=== PATIENT | male | born 1955 | race Caucasian/White ===

== ENCOUNTER 2019-10-05 18:25 | Emergency (ER) | payer SELFPAY ==
[2019-10-05] MEDS ORDERED: BUPIVACAINE 0.5% PF 10 ML VIAL ONE (19:15)
[2019-10-05] MEDS ORDERED: TETANUS & DIPHTHERIA TOX,ADULT 0.5 ML VIAL ONE (19:16)
--- NOTE | 2019-10-05 19:47 | RAD REPORT ---
EXAM DESCRIPTION: RAD -Hand Left 3 View - 10/05/2019 7:28 pm CLINICAL HISTORY: Left hand pain status post injury FINDINGS: No fracture or dislocation is seen.
--- NOTE | 2019-10-05 21:00 | ER ---
Nurse's Notes [facility] Name: Markel Roblero Age: 63 yrs Sex: Male : 1955 Arrival Date: 10/05/2019 Time: 18:28 Bed 8 Private MD: Virgil Mcnamara E Diagnosis: Finger laceration Presentation: 10/04 18:30 Chief complaint: Patient states: smashed his left 4th digit in between a lever and a sv sleeper. His ring had gotten caught but he has already taken off his ring. Coronavirus screen: Proceed with normal triage. Patient denies a cough. Patient denies shortness of breath or difficulty breathing. Patient denies measured and/or subjective temperature greater than 100.4F prior to today's visit. Patient denies travel on a cruise ship or to a country the [facility] currently lists as an affected area. Patient denies contact with known and/or suspected case of COVID-19. Ebola Screen: No symptoms or risks identified at this time. Risk Assessment: Do you want to hurt yourself or someone else? Patient reports no desire to harm self or others. Onset of symptoms was October 05, 2019. 18:30 Method Of Arrival: Ambulatory sv 18:30 Acuity: YAO 3 sv 18:32 Initial Sepsis Screen: Does the patient meet any 2 criteria? No. Patient's initial sv sepsis screen is negative. Does the patient have a suspected source of infection? No. Patient's initial sepsis screen is negative. Historical: - Allergies: 18:31 No Known Allergies; sv - PMHx: 18:31 Hypertension; sv - Immunization history:: Last tetanus immunization: > 10 years ago. - Social history:: Smoking status: . Screenin:25 Abuse screen: Denies threats or abuse. Nutritional screening: No deficits noted. ea Tuberculosis screening: No symptoms or risk factors identified. Fall Risk None identified. Assessment: 19:25 General: Appears in no apparent distress. Behavior is calm, cooperative, appropriate ea for age. Pain: Complains of pain in palmar aspect of proximal phalanx of left ring finger. Neuro: Level of Consciousness is awake, alert, obeys commands, Oriented to person, place, time, situation. Respiratory: Airway is patent Respiratory effort is even, unlabored, Respiratory pattern is regular, symmetrical. Injury Description: Laceration sustained to palmar aspect of proximal phalanx of left ring finger. 19:42 Injury Description: Laceration sustained to palmar aspect of proximal phalanx of left ea ring finger is clean, 0.5 to 2.5 cm long, was sustained 1-2 hours ago. a small amount of bleeding noted at this time. 21:04 Reassessment: Patient and/or family updated on plan of care and expected duration. Pain ea level reassessed. Patient is alert, oriented x 3, equal unlabored respirations, skin warm/dry/pink. Discharge instruction given to patient, verbalized the understanding of instruction. Pt left ED ambulatory tolerating well. Vital Signs: 18:32 BP 159 / 89; Pulse 77; Resp 16; Temp 98.1; Pulse Ox 99% ; Weight 90.72 kg; Height 5 ft. sv 6 in. (167.64 cm); 20:30 BP 147 / 87; Pulse 65; Resp 18; Pulse Ox 98% ; ea 18:32 Body Mass Index 32.28 (90.72 kg, 167.64 cm) sv ED Course: 18:28 Patient arrived in ED. ag5 18:28 Nba Duffy MD is Private Physician. ag5 18:28 Virgil Mcnamara MD is Private Physician. ag5 18:29 Arm band placed on. sv 18:31 Triage completed. sv 18:36 Sam Sandhu PA is PHCP. jmm 18:36 Fidel Bro MD is Attending Physician. jmm 18:51 Lloyd Pugh, MELINDA is Primary Nurse. em 19:26 Patient has correct armband on for positive identification. Bed in low position. Call ea light in reach. 19:28 Hand Left 3 View XRAY In Process Unspecified. EDMS 20:48 Assist provider with laceration repair on palmar aspect of proximal phalanx of left ea ring finger that was 2.5 cm. or less using sutures. Set up tray. Performed by Sam ASHTON Patient tolerated well. 20:50 Primary Nurse role handed off by Lloyd Pugh, MELINDA 21:00 Gokul German MD is Referral Physician. [facility] 21:03 Renetta Parker, MELINDA is Primary Nurse. ea 21:04 Patient did not have IV access during this emergency room visit. 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 Exp: ea 05/11/2021. Lot #: [id number]. } Route: IM; Site: left deltoid; 20:47 Follow up: Response: No adverse reaction ea 20:30 Drug: Marcaine (0.5 %) 10 ml Volume: 10 ml; Route: Infiltration; ea 20:48 Follow up: Response: No adverse reaction ea Outcome: 21:00 Discharge ordered by MD. chase 21:04 Discharged to home ambulatory. ea 21:04 Condition: stable 21:04 Discharge instructions given to patient, Instructed on discharge instructions, follow up and referral plans. Demonstrated understanding of instructions, follow-up care. 21:05 Patient left the ED. ea Signatures: Dispatcher [employer] Savanah Basurto, RN Brodie Luciano RN Sam Thompson PA PA jmm Munoz, Edgar, RN RN em Antunez, Elena RN Timo Cintron ea ag5
--- NOTE | 2019-10-05 21:01 | EDPHYS ---
Physician Documentation [facility] Name: Markel Roblero Age: 63 yrs Sex: Male : 1955 Arrival Date: 10/05/2019 Time: 18:28 Bed 8 Private MD: Virgil Mcnamara E ED Physician Fidel Bro HPI: 10/04 20:55 This 63 yrs old Male presents to ER via Ambulatory with complaints of Finger jmm Laceration. 20:55 The patient or guardian reports injury, a laceration, pain. Onset: The symptoms/episode jmm began/occurred acutely, just prior to arrival. Modifying factors: The symptoms are alleviated by nothing, the symptoms are aggravated by nothing. Associated signs and symptoms: Pertinent negatives: decreased sensation distally. This is a 63year old male with a history of htn that presents to the ED with a laceration at the base of his left 4th ring finger. His finger was crushed while working under a car. Patient was able to remove his rung. Denies other injury. Is not UTD on tetanus immunizations. . Historical: - Allergies: 18:31 No Known Allergies; sv - PMHx: 18:31 Hypertension; sv - Immunization history:: Last tetanus immunization: > 10 years ago. - Social history:: Smoking status: . ROS: 20:55 Constitutional: Negative for fever, chills, and weight loss, Cardiovascular: Negative jmm for chest pain, palpitations, and edema, Respiratory: Negative for shortness of breath, cough, wheezing, and pleuritic chest pain, Abdomen/GI: Negative for abdominal pain, nausea, vomiting, diarrhea, and constipation. 20:55 MS/extremity: Positive for injury or acute deformity. 20:55 All other systems are negative. Exam: 20:55 Constitutional: This is a well developed, well nourished patient who is awake, alert, jmm and in no acute distress. Head/Face: atraumatic. Eyes: EOMI, no conjunctival erythema appreciated ENT: Moist Mucus Membranes Neck: Trachea midline, Supple Chest/axilla: Normal chest wall appearance and motion. Cardiovascular: Regular rate and rhythm. No edema appreciated Respiratory: Normal respirations, no respiratory distress appreciated Abdomen/GI: Non distended, soft Back: Normal ROM 20:55 Musculoskeletal/extremity: full flexion against resistance to the left 4th finger, < 2 sec dist cap refill, sensation intact, NVI. 20:55 Skin: 2 cm laceration noted to the base of the left 4th finger on palmar side. 20:55 Neuro: Orientation: is normal, Mentation: is normal, Memory: is normal. 20:55 Psych: Behavior/mood is pleasant, cooperative. Vital Signs: 18:32 BP 159 / 89; Pulse 77; Resp 16; Temp 98.1; Pulse Ox 99% ; Weight 90.72 kg; Height 5 ft. sv 6 in. (167.64 cm); 20:30 BP 147 / 87; Pulse 65; Resp 18; Pulse Ox 98% ; ea 18:32 Body Mass Index 32.28 (90.72 kg, 167.64 cm) sv Laceration: 20:58 Wound Repair of 2cm ( 0.8in ) subcutaneous laceration to palmar aspect of proximal jmm phalanx of left ring finger. Distal neuro/vascular/tendon intact. Anesthesia: Local anesthetic administered with 3 mls of 0.5% marcaine. Wound prep: Moderate cleansing with betadine by ga. Skin closed with 5 4-0 Prolene using simple sutures and sterile technique. Patient tolerated well. MDM: 19:00 Patient medically screened. [facility] 20:58 Data reviewed: vital signs, nurses notes. [facility] 20:58 Data reviewed: radiologic studies. Counseling: I had a detailed discussion with the [facility] patient and/or guardian regarding: the historical points, exam findings, and any diagnostic results supporting the discharge/admit diagnosis, radiology results, the need for outpatient follow up, to return to the emergency department if symptoms worsen or persist or if there are any questions or concerns that arise at home. ED course: FROM appreciated, Tendon injury was not visualized, Patient advised to follow up with hand and given wound infection return precautions. Patient understood and agrees with the plan of care. . 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 Exp: ea 05/11/2021. Lot #: [id number]. } Route: IM; Site: left deltoid; 20:47 Follow up: Response: No adverse reaction ea 20:30 Drug: Marcaine (0.5 %) 10 ml Volume: 10 ml; Route: Infiltration; ea 20:48 Follow up: Response: No adverse reaction ea Disposition: 10/05/19 21:00 Discharged to Home. Impression: Finger laceration. - Condition is Stable. - Discharge Instructions: Laceration Care, Adult. - Medication Reconciliation Form, Thank You Letter, Antibiotic Education, Prescription Opioid Use form. - Follow up: Gokul German MD; When: 7 - 10 days; Reason: Recheck today's complaints, Continuance of care, Staple/Suture removal, Re-evaluation by your physician. Addendum: 10/08/2019 16:34 Co-signature as Attending Physician, Fidel Bro MD I agree with the assessment and k dr plan of care. Signatures: Dispatcher [employer] Savanah Basurto, RN RN Fidel Mullins MD MD kdr Mickail, Joel, PA PA jmm Antunez, Elena, RN RN ea Corrections: (The following items were deleted from the chart) 10/04 21:05 21:00 10/05/2019 21:00 Discharged to Home. Impression: Finger laceration. Condition is ea Stable. Forms are Medication Reconciliation Form, Thank You Letter, Antibiotic Education, Prescription Opioid Use. Follow up: Gokul German; When: 7 - 10 days; Reason: Recheck today's complaints, Continuance of care, Staple/Suture removal, Re-evaluation by your physician. salvatore
[2019-10-05 21:15] VITALS: TEMP 98.1
[2019-10-05 21:16] VITALS: BP 147/87; O2SAT 98
== END 2019-10-05 21:05 | disposition home or self-care (01) ==
LOC: ER 18:25
PROC: 0JQK0ZZ Repair Left Hand Subcutaneous Tissue and Fascia, Open Approach (ICD-10-PCS; principal; 2019-10-05)
DX: S61.215A Laceration without foreign body of left ring finger without damage to nail, initial encounter (principal); W23.0XXA Caught, crushed, jammed, or pinched between moving objects, initial encounter; Y93.89 Activity, other specified; Y92.9 Unspecified place or not applicable; Z23 Encounter for immunization
CPT/HCPCS: 90471; 90714; 99283

== ENCOUNTER 2020-06-22 13:35 | Emergency (ER) | payer SELFPAY ==
[2020-06-22] MEDS ORDERED: SMZ./TMP. 800/160 MG TABLET ONE (15:49)
[2020-06-22] MEDS ORDERED: HYDROCODONE/APAP 10/325 TAB ONE (15:49)
[2020-06-22] MEDS ORDERED: LIDOCAINE 1% MPF 30 ML VIAL ONE (15:49)
[2020-06-22] MEDS ORDERED: HYDROCODONE/APAP 5/325 MG TAB ONE (15:53)
--- NOTE | 2020-06-22 16:05 | EDPHYS ---
Physician Documentation [facility] Name: Markel Roblero Age: 64 yrs Sex: Male : 1955 Arrival Date: 06/22/2020 Time: 13:39 Bed 20 Private MD: ED Physician Chong Asencio HPI: 06/22 16:02 This 64 yrs old Male presents to ER via Ambulatory with complaints of Cyst. kb 16:02 The patient presents with an abscess of the right mid back. Description: erythematous, kb swollen, warm. Onset: The symptoms/episode began/occurred 1 week(s) ago. Possible cause(s): unknown. Associated signs and symptoms: Pertinent positives: erythema, swelling, Pertinent negatives: fever. Modifying factors: the symptoms are alleviated by nothing, the symptoms are aggravated by pressure, squeezing the lesion and expressing the contents, touching. Severity of symptoms: At their worst the symptoms were moderate, in the emergency department the symptoms are unchanged. The patient has not experienced similar symptoms in the past. The patient has not recently seen a physician. Historical: - Allergies: 13:50 No Known Allergies; ll1 - PMHx: 13:50 Hypertension; ll1 - PSHx: 13:50 metal plate skull, skull fx; ll1 - Immunization history:: Flu vaccine is not up to date. - Social history:: Smoking status: Patient denies any tobacco usage or history of. ROS: 15:59 Constitutional: Negative for fever, chills, and weight loss. kb 15:59 Skin: Positive for abscess, of the right mid back. Exam: 16:00 Constitutional: This is a well developed, well nourished patient who is awake, alert, kb and in no acute distress. Head/Face: Normocephalic, atraumatic. Respiratory: Respirations even and unlabored. No increased work of breathing, no retractions or nasal flaring. MS/ Extremity: Pulses equal, no cyanosis. Neurovascular intact. Full, normal range of motion. Neuro: Awake and alert, GCS 15, oriented to person, place, time, and situation. Moves all extremities. Normal gait. 16:00 Skin: abscess, that is moderate sized, approximately 2 cm(s), of the right mid back, with surrounding cellulitis, that is mild, that is moderate. Vital Signs: 13:50 BP 168 / 88; Pulse 72; Resp 17; Temp 98.1; Pulse Ox 96% ; Weight 90.72 kg; Height 5 ft. ll1 6 in. (167.64 cm); Pain 6/10; 16:04 BP 145 / 86; Pulse 71; Resp 18; Pulse Ox 96% on R/A; bw 13:50 Body Mass Index 32.28 (90.72 kg, 167.64 cm) ll1 Procedures: 15:59 I \T\ D: Incision and drainage was performed for an abscess of the right mid back Prepped kb with Betadine, Anesthetized with 1 ml's 1% Lidocaine. Incised with #11 blade. Drained moderate amount purulent fluid. Packed with sterile gauze, Dressing: sterile 4x4 gauze, the patient tolerated the procedure well. MDM: 15:11 Patient medically screened. kb 15:59 Data reviewed: vital signs, nurses notes. Data interpreted: Pulse oximetry: on room air kb is 96 %. Interpretation: normal. Counseling: I had a detailed discussion with the patient and/or guardian regarding: the historical points, exam findings, and any diagnostic results supporting the discharge/admit diagnosis, the need for outpatient follow up, a family practitioner, to return to the emergency department if symptoms worsen or persist or if there are any questions or concerns that arise at home. 06/22 15:17 Order name: Wound Culture 06/22 15:17 Order name: Wound Culture EDAL 06/22 15:16 Order name: I\T\D Setup; Complete Time: 15:30 kb Administered Medications: 15:37 Drug: Bactrim (160 mg-800 mg (DS) 1 tablet Route: PO; bw 15:38 Drug: Clif[place] (HYDROcodone-acetaminophen) 5 mg-325 mg 1 tabs Route: PO; bw 16:08 Drug: Lidocaine (1 %) 1 vials Volume: 5 ml; Route: Infiltration; bw Disposition: 16:49 Co-signature as Attending Physician, Chong Asencio MD. rn Disposition: 06/22/20 16:04 Discharged to Home. Impression: Cutaneous abscess of back [any part, except buttock]. - Condition is Stable. - Discharge Instructions: Skin Abscess, [id number]. - Prescriptions for Bactrim DS 800- 160 mg Oral Tablet - take 1 tablet by ORAL route every 12 hours for 7 days; 14 tablet. - Medication Reconciliation Form, Thank You Letter, Antibiotic Education, Prescription Opioid Use form. - Follow up: Emergency Department; When: As needed; Reason: Worsening of condition. Follow up: Private Physician; When: 2 - 3 days; Reason: Recheck today's complaints, Continuance of care, Re-evaluation by your physician. Signatures: Dispatcher [employer] EDAL Leanne Franklin, RHYS-C STUDENT WORKER-Savanah Candelaria, RN RN Chong Cristobal MD MD rn Lewis, Lynsay, RN RN ll Blanca Paul RN RN Corrections: (The following items were deleted from the chart) 16:21 16:04 06/22/2020 16:04 Discharged to Home. Impression: Cutaneous abscess of back [any sv part, except buttock]. Condition is Stable. Forms are Medication Reconciliation Form, Thank You Letter, Antibiotic Education, Prescription Opioid Use. Follow up: Emergency Department; When: As needed; Reason: Worsening of condition. Follow up: Private Physician; When: 2 - 3 days; Reason: Recheck today's complaints, Continuance of care, Re-evaluation by your physician. kb
--- NOTE | 2020-06-22 16:05 | ER ---
Nurse's Notes [facility] Name: Markel Roblero Age: 64 yrs Sex: Male : 1955 Arrival Date: 06/22/2020 Time: 13:39 Bed 20 Private MD: Diagnosis: Cutaneous abscess of back [any part, except buttock] Presentation: 06/22 13:50 Chief complaint: Patient states: Abscess to R mid back for 10 days. triad to pop ll1 it. No fever. Coronavirus screen: Client denies travel out of the [place] in the last 14 days. At this time, the client does not indicate any symptoms associated with coronavirus-19. Ebola Screen: Patient denies travel to an Ebola-affected area in the 21 days before illness onset. Initial Sepsis Screen: Does the patient meet any 2 criteria? No. Patient's initial sepsis screen is negative. Does the patient have a suspected source of infection? Yes: Skin breakdown/wound. Risk Assessment: Do you want to hurt yourself or someone else? Patient reports no desire to harm self or others. Onset of symptoms was June 12, 2020. 13:50 Method Of Arrival: Ambulatory ll1 13:50 Acuity: YAO 3 ll1 Triage Assessment: 16:07 General: Appears in no apparent distress. Behavior is calm, cooperative, appropriate bw for age. Historical: - Allergies: 13:50 No Known Allergies; ll1 - PMHx: 13:50 Hypertension; ll1 - PSHx: 13:50 metal plate skull, skull fx; ll1 - Immunization history:: Flu vaccine is not up to date. - Social history:: Smoking status: Patient denies any tobacco usage or history of. Screenin:04 Abuse screen: Denies threats or abuse. Nutritional screening: No deficits noted. bw Tuberculosis screening: No symptoms or risk factors identified. Fall Risk None identified. Assessment: 16:04 Pain: Complains of pain in back. Neuro: No deficits noted. Cardiovascular: No deficits bw noted. Respiratory: No deficits noted. GI: No signs and/or symptoms were reported involving the gastrointestinal system. : No signs and/or symptoms were reported regarding the genitourinary system. Vital Signs: 13:50 BP 168 / 88; Pulse 72; Resp 17; Temp 98.1; Pulse Ox 96% ; Weight 90.72 kg; Height 5 ft. ll1 6 in. (167.64 cm); Pain 6/10; 16:04 BP 145 / 86; Pulse 71; Resp 18; Pulse Ox 96% on R/A; bw 13:50 Body Mass Index 32.28 (90.72 kg, 167.64 cm) ll1 ED Course: 13:39 Patient arrived in ED. mr 13:49 Arm band placed on Patient notified of wait time. ll1 13:51 Triage completed. ll1 15:11 Leanne Franklin FNP-C is [facility]. kb 15:11 Chong Asencio MD is Attending Physician. kb 15:23 Blanca Paul, RN is Primary Nurse. bw 15:37 Wound Culture Sent. bw 16:04 Patient has correct armband on for positive identification. Call light in reach. Side bw rails up X 1. Pulse ox on. NIBP on. 16:04 No provider procedures requiring assistance completed. Patient did not have IV access bw during this emergency room visit. Administered Medications: 15:37 Drug: Bactrim (160 mg-800 mg (DS) 1 tablet Route: PO; bw 15:38 Drug: [place] (HYDROcodone-acetaminophen) 5 mg-325 mg 1 tabs Route: PO; bw 16:08 Drug: Lidocaine (1 %) 1 vials Volume: 5 ml; Route: Infiltration; bw Outcome: 16:04 Discharge ordered by . kb 16:04 Discharged to home bw 16:04 Condition: good 16:04 Discharge instructions given to patient. 16:21 Patient left the ED. sv Signatures: Leanne Franklin FNP-C FNP-Ckb Verde, Stephanie, RN RN sv Rivera, Mary Cipriano Prakash RN RN [facility] Blanca Paul RN RN
[2020-06-22 16:25] VITALS: TEMP 98.1; O2SAT 96
[2020-06-22 16:27] VITALS: BP 145/86
== END 2020-06-22 16:21 | disposition home or self-care (01) ==
LOC: ER 13:35
PROC: 0J970ZZ Drainage of Back Subcutaneous Tissue and Fascia, Open Approach (ICD-10-PCS; principal; 2020-06-22)
DX: L02.212 Cutaneous abscess of back [any part, except buttock and flank] (principal); I10 Essential (primary) hypertension
CPT/HCPCS: 87070; 87205; 99283